=== PATIENT | male | born 1950 | race Caucasian/White ===

== ENCOUNTER → 2020-06-30 12:42 | Outpatient (BNVA) | payer MEDICARE, OTHER, SELFPAY | PROVIDERS: PCP Family Medicine; Referring Provider Family Medicine; Visit Provider Hospitalist | DX: J44.9 Chronic obstructive pulmonary disease, unspecified (principal); R91.8 Other nonspecific abnormal finding of lung field; Z85.01 Personal history of malignant neoplasm of esophagus; Z87.891 Personal history of nicotine dependence | CPT/HCPCS: 99214 ==

== ENCOUNTER 2021-06-26 09:48 | Outpatient (REF) | payer MEDICARE, OTHER, SELFPAY ==
--- NOTE | 2021-06-26 17:10 | PFT_ITS ---
INDICATION: COPD. SPIROMETRY: The FEV1 to FVC of 74% with an FEV1 of 2.52 L which is 71% predicted, an FVC of 3.23 L which is 67% predicted. The patient already had used bronchodilators. Therefore, post bronchodilator numbers were not checked. The maximum voluntary ventilation 105% predicted. LUNG VOLUMES: Total lung capacity 79% predicted with an expiratory reserve volume of 18% predicted secondary to an elevated BMI. DIFFUSION CAPACITY: DLCO of 69% predicted. It does correct to 92% correcting for the alveolar volume. COMPARISONS: None available at this time. INTERPRETATION: No definitive obstructive ventilatory defect. Bronchodilators were not used due to the fact that he had already used them prior to this study. Maximum voluntary ventilation is within normal limits. Although when looking at the flow volume loop, there appears to be an obstructive physiology. Lung volumes demonstrate a mild restrictive ventilatory defect and the patient does have a mild diffusion impairment. There is reassuring that the diffusion impairment does correct to normal when correcting for the alveolar volume. Clinical correlation warranted. MD THERESE Olivia/JEMIMA / [id number]
== END 2021-06-26 09:49 | disposition home or self-care (01) ==
LOC: HO.RESP 09:48
PROVIDERS: PCP Internal Medicine; Visit Provider Hospitalist
DX: J44.9 Chronic obstructive pulmonary disease, unspecified (principal)
CPT/HCPCS: 94010; 94727; 94729

== ENCOUNTER → 2021-06-27 10:35 | Outpatient (REF) | payer MEDICARE, OTHER, SELFPAY ==
--- NOTE | 2021-06-27 11:34 | ECG_ITS ---
Test Reason : DYSPNEA Blood Pressure : / mmHG Vent. Rate : 073 BPM Atrial Rate : 073 BPM P-R Int : 182 ms QRS Dur : 076 ms QT Int : 392 ms P-R-T Axes : 034 042 033 degrees QTc Int : 431 ms Normal sinus rhythm Normal ECG No previous ECGs available Referred By: Rick Recinos Electronically Signed By:JESSIE LEIJA
== END ==
LOC: HO.CARD 10:35
PROVIDERS: PCP Internal Medicine; Visit Provider Hospitalist
DX: J44.9 Chronic obstructive pulmonary disease, unspecified (principal); R91.8 Other nonspecific abnormal finding of lung field; R06.00 Dyspnea, unspecified; I25.10 Atherosclerotic heart disease of native coronary artery without angina pectoris; I25.84 Coronary atherosclerosis due to calcified coronary lesion
CPT/HCPCS: 93005; 99212

== ENCOUNTER → 2021-09-11 10:51 | Outpatient (REF) | payer MEDICARE, OTHER, SELFPAY ==
--- NOTE | 2021-09-11 10:56 | CA_ITS ---
Acquisition Time: 2021-09-11 11:35:46 Total Exercise Time: 00:07:00 Test Indications: SOB Medications: SEE CHART Protocol: ROSAMARIA Max HR: 136 BPM 90% of Pred: 151 BPM Max BP: 180/088 mmHG Max Work Load: 8.5 METS Exercise stress test with exercise 7 min of Rosamaria protocol, with mild to moderate shortness of breath, no chest disccomfort, without arrythmia, with normotensive response to exercise, with borderline ST changes V3-V6, not meeting criteria for ischemia. Echo images obtained by tech at rest and immediately post peak exercise. Definity contrast used. Test reviewed with Dr Mcarthur Referred By: Rick Recinos Overread By: CLAUDIA ANAYA
== END ==
LOC: HO.CARD 10:51
PROVIDERS: Visit Provider Hospitalist
DX: R06.00 Dyspnea, unspecified (principal)
CPT/HCPCS: 93350; Q9957

== ENCOUNTER → 2021-12-27 11:08 | Outpatient (BNVA) | payer MEDICARE, OTHER, SELFPAY | PROVIDERS: PCP Internal Medicine; Visit Provider Hospitalist | DX: J44.9 Chronic obstructive pulmonary disease, unspecified (principal); R91.8 Other nonspecific abnormal finding of lung field; R06.00 Dyspnea, unspecified; I25.10 Atherosclerotic heart disease of native coronary artery without angina pectoris; I25.84 Coronary atherosclerosis due to calcified coronary lesion | CPT/HCPCS: 99212 ==

== ENCOUNTER → 2022-08-01 11:07 | Outpatient (BNVA) | payer MEDICARE, OTHER, SELFPAY | PROVIDERS: PCP Internal Medicine; Visit Provider Hospitalist | DX: J44.9 Chronic obstructive pulmonary disease, unspecified (principal); R91.8 Other nonspecific abnormal finding of lung field; R06.00 Dyspnea, unspecified; I25.10 Atherosclerotic heart disease of native coronary artery without angina pectoris; I25.84 Coronary atherosclerosis due to calcified coronary lesion | CPT/HCPCS: 99212 ==